=== PATIENT | female | born 1985 | race Hispanic/Latino ===

== ENCOUNTER 2018-01-05 09:55 | Observation (INO) | payer OTHER ==
[~2018-01-05 09:55] MED LIST: ACET-2247 PO; ACET-2900 PO; FOLI0.8T PO; IBUP-2353 GT; PREN-146 PO; PREN-64 PO; PREN1TAB80 PO
[2018-01-05 11:22] LABS: APPEARANCE,URINE Turbid (CLEAR); BILIRUBIN,URINE Small (NEGATIVE); COLOR,URINE Dark Yellow (YELLOW); GLUCOSE, URINE (UA) Negative (NEGATIVE); KETONES,URINE Trace mg/dL (NEGATIVE); LEUKOCYTE ESTERASE ,URINE Moderate (NEGATIVE); NITRATE,URINE Positive (NEGATIVE); OCCULT BLOOD,URINE Nonhemolyzed Trace (NEGATIVE); PROTEIN,URINE POS 1+ (NEGATIVE)
[2018-01-05 11:34] LABS: BACTERIA,URINE Many /HPF (None Seen); RBC,URINE 0-1 /HPF (0-1); SQUAMOUS EPITHELIAL CELL,UR Rare /HPF (0-2); TRANSITIONAL EPI CELLS,URINE Rare /HPF (None Seen)
== END 2018-01-05 13:28 | disposition home or self-care (01) ==
LOC: LDH 09:55
PROVIDERS: ADMIT Obstetrics & Gynecology; ATTEND Obstetrics & Gynecology
DX: O36.8330 Maternal care for abnormalities of the fetal heart rate or rhythm, third trimester, not applicable or unspecified (principal); Z3A.33 33 weeks gestation of pregnancy
CPT/HCPCS: 76819; 81001; G0378 ×5

== ENCOUNTER 2018-01-07 17:26 | Observation (INO) | payer OTHER ==
[~2018-01-07] VITALS: Ht 160 cm; Wt 135.6 kg
[2018-01-07 20:37] LABS: CREATININE 0.6 mg/dL (0.5-1.5); POTASSIUM 3.7 mmol/L (3.5-5.1)
[2018-01-07 20:42] LABS: ALBUMIN 2.5 g/dL (3.5-5.0); BILIRUBIN,TOTAL 0.2 mg/dL (0.2-1.0); TOTAL PROTEIN, SERUM 7.2 g/dL (6.0-8.3)
[2018-01-07 21:42] LABS: BASOPHILS % (AUTO) 0.4 % (0.0-5.0); EOSINOPHILS % (AUTO) 0.6 % (0.0-8.0); HEMATOCRIT 31.1 % (36-48); LYMPHOCYTES % (AUTO) 23.9 % (21.0-51.0); MEAN CORPUSCULAR HEMOGLOBIN 26.7 pg (27.0-33.0); MEAN CORPUSCULAR HGB CONC 33.7 g/dL (32.0-36.0); MEAN CORPUSCULAR VOLUME 79.4 fL (79-99); MONOCYTES % (AUTO) 4.3 % (3.0-13.0); NEUTROPHILS % (AUTO) 70.8 % (40.0-77.0); NUCLEATED RED BLOOD CELLS 0.1 % (0.0-0.19); PLATELET COUNT (AUTO) 214 K/uL (130-400); RED BLOOD CELL COUNT(AUTO) 3.92 MIL/uL (4.00-5.50); RED CELL DISTRIBUTION WIDTH 16.6 % (11.0-15.5); WHITE BLOOD COUNT (AUTO) 10.7 K/uL (4.8-10.8)
[2018-01-07 21:59] LABS: APPEARANCE,URINE CLEAR (CLEAR); BILIRUBIN,URINE NEGATIVE (NEGATIVE); COLOR,URINE YELLOW (YELLOW); GLUCOSE, URINE (UA) NEGATIVE (NEGATIVE); KETONES,URINE NEGATIVE (NEGATIVE); LEUKOCYTE ESTERASE ,URINE SMALL (NEGATIVE); NITRATE,URINE NEGATIVE (NEGATIVE); OCCULT BLOOD,URINE NEGATIVE (NEGATIVE); PH,URINE 6.5 (5.0-8.0); PROTEIN,URINE NEGATIVE (NEGATIVE); UROBILINOGEN,URINE 0.2 mg/dL (0.2-1.0)
[2018-01-07 22:05] LABS: BACTERIA,URINE Moderate /HPF (None Seen); RBC,URINE 0-1 /HPF (0-1); SQUAMOUS EPITHELIAL CELL,UR Few /HPF (0-2)
== END 2018-01-08 03:21 | disposition home or self-care (01) ==
LOC: EDH 17:26 → EDHIP 17:27 → LDH 17:28
PROVIDERS: ADMIT Obstetrics & Gynecology; ATTEND Obstetrics & Gynecology
DX: O26.893 Other specified pregnancy related conditions, third trimester (principal); R05 Cough; Z3A.33 33 weeks gestation of pregnancy
CPT/HCPCS: 36415; 80053; 81001; 81025; 84484; 85025; 85378; 87804 ×2; 93005; 99291; G0378 ×10

== ENCOUNTER 2018-01-15 12:23 | Inpatient (IN) | payer MEDICAID, OTHER ==
[~2018-01-15] VITALS: Ht 154.9 cm; Wt 134.3 kg
[2018-01-15 15:13] LABS: HEMOGLOBIN A1C 6.5 % (4.0-6.0)
[2018-01-15] MEDS ORDERED: CEFAZOLIN SODIUM 1 GM VIAL IVP PRN (15:15)
[2018-01-15] MEDS ORDERED: LACTATED RINGERS 1000ML 1,000 ML IV SCH (15:15)
[2018-01-15 15:38] LABS: HEMATOCRIT 34.5 % (36-48); MEAN CORPUSCULAR HEMOGLOBIN 26.8 pg (27.0-33.0); MEAN CORPUSCULAR HGB CONC 34.2 g/dL (32.0-36.0); MEAN CORPUSCULAR VOLUME 78.2 fL (79-99); NUCLEATED RED BLOOD CELLS 0.1 % (0.0-0.19); PLATELET COUNT (AUTO) 357 K/uL (130-400); RED BLOOD CELL COUNT(AUTO) 4.41 MIL/uL (4.00-5.50); RED CELL DISTRIBUTION WIDTH 17.4 % (11.0-15.5); WHITE BLOOD COUNT (AUTO) 10.4 K/uL (4.8-10.8)
[2018-01-15 15:58] LABS: PLATELET MORPHOLOGY LARGE PLTS PRESENT
[2018-01-15 19:23] LABS: AMPHET/METH SCREEN,URINE NEGATIVE (NEGATIVE); BARBITURATE SCREEN, URINE NEGATIVE (NEGATIVE); BENZODIAZEPINES SCREEN,URINE NEGATIVE (NEGATIVE); CANNABINOID SCREEN,URINE NEGATIVE (NEGATIVE); COCAINE SCREEN,URINE NEGATIVE (NEGATIVE); OPIATE SCREEN,URINE NEGATIVE (NEGATIVE); PHENCYCLIDINE SCREEN,URINE NEGATIVE (NEGATIVE)
[2018-01-15 19:30] VITALS: BP 145/78
[2018-01-15] MEDS ORDERED: GUAIFENESIN-CODEINE 5 ML SYRUP PO PRN (21:15)
[2018-01-15] MEDS ORDERED: GUAIFENESIN-DM 200/20 MG 10 ML ONE (22:13)
[2018-01-15] MEDS: GUAIFENESIN-DM 200/20 MG 10 ML PO SCH (23:00)
[2018-01-15 23:17] LABS: INR 0.88 (0.85-1.15); PARTIAL THROMBOPLASTIN TIME 29.6 SEC (26.3-35.5); PROTHROMBIN TIME 9.3 SEC (9.6-11.6)
[2018-01-16] MEDS ORDERED: ROCURONIUM 10MG/1ML SYR 10 MG/ML ML ONE (09:01)
[2018-01-16] MEDS ORDERED: SUCCINYLCHOLINE CHLORIDE 20 MG/ML 10 ML VIAL ONE (09:01)
[2018-01-16] MEDS ORDERED: DURAMORPH PF1 MG/ML 10ML AMP IV ONE (09:04)
[2018-01-16] MEDS ORDERED: EPINEPHRINE 1 MG/ML AMPULE ONE (09:07)
[2018-01-16] MEDS ORDERED: OXYTOCIN 10 USP UNITS/ML ONE ×3 (09:18→20:58)
[2018-01-16] MEDS ORDERED: LACTATED RINGERS 1000ML 1,000 ML IV ONE (10:13)
[2018-01-16] MEDS ORDERED: CEFAZOLIN SODIUM 1 GM VIAL IVP ONE (12:20)
[2018-01-16] MEDS ORDERED: MIDAZOLAM HCL 1 MG/ML 2ML VIAL ONE (12:32)
[2018-01-16] MEDS ORDERED: SENSORCAINE/DEXT/PF 0.75% 2ML AMP IJ ONE (12:47)
[2018-01-16] MEDS ORDERED: MEASLES/MUMPS/RUBELLA VACCINE, LIVE 0.5 ML/VIAL SQ SCH (13:15)
[2018-01-16] MEDS ORDERED: BISACODYL 10 MG SUPP.RECT RC PRN (13:15)
[2018-01-16] MEDS ORDERED: SODIUM CHLORIDE 0.9% 10 ML VIAL IVP PRN (13:15)
[2018-01-16] MEDS ORDERED: IBUPROFEN 600 MG TABLET PO PRN (13:15)
[2018-01-16] MEDS ORDERED: DEXTROSE 5 %-0.45 % NACL 1,000 ML IV PRN (13:15)
[2018-01-16] MEDS ORDERED: DIPH,PERTUSS(ACELL),TET VAC/PF 0.5 ML VIAL IM SCH (13:15)
[2018-01-16 14:45] VITALS: BP 153/79
[2018-01-16 16:00] VITALS: BP 115/76
[2018-01-16] MEDS ORDERED: NALOXONE HCL 0.4 MG/1 ML ML IVP PRN ×2 (16:00)
[2018-01-16] MEDS ORDERED: MORPHINE SULFATE 2 MG/ML 1ML SYG IVP PRN (16:00)
[2018-01-16] MEDS ORDERED: PROMETHAZINE HCL 25 MG/ML 1ML AMPULE IM PRN (16:00)
[2018-01-16] MEDS ORDERED: HYDROCODONE/ACETAMINOPHEN 5/325 MG TAB PO PRN ×2 (16:00)
[2018-01-16] MEDS ORDERED: EPHEDRINE SULFATE 50 MG/ML AMPULE IVP PRN (16:00)
[2018-01-16] MEDS ORDERED: METOCLOPRAMIDE 10 MG/2 ML VIAL IVP PRN (16:00)
[2018-01-16] MEDS ORDERED: ONDANSETRON HCL 4 MG/2 ML 8 MG in SODIUM CHLORIDE 0.9% 50 ML IVP NR (16:00)
[2018-01-16] MEDS ORDERED: ONDANSETRON HCL 4 MG/2 ML VIAL IVP PRN ×2 (16:00)
[2018-01-16] MEDS ORDERED: DiphenhydrAMINE HCL 50 MG/ML VIAL IVP PRN (16:00)
[2018-01-16 19:45] VITALS: BP 144/79
[2018-01-16] MEDS ORDERED: OXYTOCIN-LR 20 UNITS/1000 ML 1,000 ML IV PRN (21:06)
[2018-01-16] MEDS: CALDOLOR 800MG+NS 250ML 250 ML IV SCH (21:29)
[2018-01-16] MEDS: DOCUSATE SODIUM 100 MG CAP PO SCH (21:31)
[2018-01-16] MEDS: SIMETHICONE 80 MG TAB.CHEW PO PRN (21:31)
[2018-01-16] MEDS: GUAIFENESIN-DM 200/20 MG 10 ML PO SCH (23:00)
[2018-01-17 00:14] VITALS: BP 127/73
[2018-01-17 04:51] VITALS: BP 135/80
[2018-01-17] MEDS: CALDOLOR 800MG+NS 250ML 250 ML IV SCH (05:15)
[2018-01-17 06:01] LABS: HEMATOCRIT 33.5 % (36-48); MEAN CORPUSCULAR HEMOGLOBIN 25.3 pg (27.0-33.0); MEAN CORPUSCULAR HGB CONC 32.3 g/dL (32.0-36.0); MEAN CORPUSCULAR VOLUME 78.3 fL (79-99); PLATELET COUNT (AUTO) 201 K/uL (130-400); RED BLOOD CELL COUNT(AUTO) 4.28 MIL/uL (4.00-5.50); RED CELL DISTRIBUTION WIDTH 17.7 % (11.0-15.5); WHITE BLOOD COUNT (AUTO) 10.8 K/uL (4.8-10.8)
[2018-01-17] MEDS ORDERED: ACETAMINOPHEN EXTRA STRENGTH 500 MG TABLET PO PRN (07:30)
[2018-01-17] MEDS ORDERED: HYDROCODONE/ACETAMINOPHEN 5/325 MG TAB PO PRN (07:30)
[2018-01-17] MEDS ORDERED: BISACODYL 10 MG SUPP.RECT RC PRN (07:30)
[2018-01-17] MEDS ORDERED: SIMETHICONE 80 MG TAB.CHEW PO PRN (07:30)
[2018-01-17] MEDS ORDERED: DIPHENHYDRAMINE HCL 25 MG CAPSULE PO PRN (07:30)
[2018-01-17 08:40] VITALS: BP 108/57
[2018-01-17] MEDS: DOCUSATE SODIUM 100 MG CAP PO SCH ×3 (09:00→21:34)
[2018-01-17] MEDS: ACETAMINOPHEN-CODEINE 300/30MG TAB PO PRN ×2 (09:07→16:56)
[2018-01-17] MEDS: SIMETHICONE 80 MG TAB.CHEW PO PRN ×3 (09:07→21:34)
[2018-01-17 11:40] VITALS: BP 108/57
[2018-01-17] MEDS: IBUPROFEN 800 MG TAB PO SCH ×2 (12:52→21:34)
[2018-01-17 15:55] VITALS: BP 135/62
[2018-01-17 19:53] VITALS: BP 129/82
[2018-01-18 00:13] VITALS: BP 122/69
[2018-01-18 03:35] VITALS: BP 119/72
[2018-01-18] MEDS: IBUPROFEN 800 MG TAB PO SCH (05:35)
[2018-01-18 07:23] VITALS: BP 118/60
[2018-01-18 08:23] LABS: HEPATITIS Bs ANTIGEN SCREEN P Negative (Negative)
[2018-01-18] MEDS: ACETAMINOPHEN-CODEINE 300/30MG TAB PO PRN (08:52)
[2018-01-18] MEDS: SIMETHICONE 80 MG TAB.CHEW PO PRN (08:52)
[2018-01-18] MEDS: DOCUSATE SODIUM 100 MG CAP PO SCH ×2 (08:52→09:00)
== END 2018-01-18 10:40 | disposition home or self-care (01) | DRG 787 ==
LOC: EDH 12:23 → LDH 12:41 → OBSVTOIN 12:41 → LDH 12:44 → WSH 01-16 14:45
PROVIDERS: ADMIT Obstetrics & Gynecology; ATTEND Obstetrics & Gynecology
PROC: 0UN90ZZ Release Uterus, Open Approach (ICD-10-PCS; 2018-01-16)
PROC: 10D00Z1 Extraction of Products of Conception, Low, Open Approach (ICD-10-PCS; principal; 2018-01-16 11:18)
DX: O36.4XX0 Maternal care for intrauterine death, not applicable or unspecified (principal); O41.03X0 Oligohydramnios, third trimester, not applicable or unspecified; O34.211 Maternal care for low transverse scar from previous cesarean delivery; O24.92 Unspecified diabetes mellitus in childbirth; O99.89 Other specified diseases and conditions complicating pregnancy, childbirth and the puerperium; O99.214 Obesity complicating childbirth; E66.01 Morbid (severe) obesity due to excess calories; N73.6 Female pelvic peritoneal adhesions (postinfective); O69.81X0 Labor and delivery complicated by cord around neck, without compression, not applicable or unspecified; Z3A.34 34 weeks gestation of pregnancy; Z37.1 Single stillbirth
CPT/HCPCS: 36415; 59510; 76815; 80305; 82947; 82948; 83036; 85027; 85049; 85384; 85610; 85730; 86592; 86644; 86645; 86694; 86695; 86762; 86777; 86778; 86850; 86900; 86901; 87070; 87076; 87340; 88307; A4344; A4606; J0171; J0330; J0690; J1741; J2250; J2274; J2590; J3490; J7042; J7120